=== PATIENT | male | born 1955 | race Caucasian/White ===

== ENCOUNTER 2017-01-06 17:37 | Emergency (ER) | payer MEDICARE ==
[2017-01-06 18:06] VITALS: BP 120/71
--- NOTE | 2017-01-06 18:47 | UC ---
Larry Smith Claudia, scribed for Cordell Mcgovern MD on 01/06/17 at 1818 . Neck Pain HPI - HPI Summary HPI Summary: 61 year old male presents to the [facility] with neck pain since Friday. Pt sister notes he woke up with pain on Friday and it has been consistent since. Pt notes pain left para-cervical pain aggravated with neck movement. PMHx of GERD and Autism is noted. - History of Current Complaint Chief Complaint: UCBackPain Stated Complaint: NECK PAIN Time Seen by Provider: 01/06/17 17:57 Hx Obtained From: Patient Onset/Duration: Sudden Onset, Lasting Days - since Friday Location: Discrete At: - left para-cervical Character: Sharp Aggravating Factors: Movement Alleviating Factors: Nothing - Allergies/Home Medications Allergies/Adverse Reactions: Allergies Allergy/AdvReac Type Severity Reaction Status Date / Time No Known Allergies Allergy Verified 01/06/17 18:00 Home Medications: Home Medications Famotidine TAB* [Pepcid 20 MG TAB*] 20 mg PO BEDTIME 01/06/17 [History Confirmed 01/06/17] Ibuprofen TAB* [Advil TAB*] 400 mg PO Q6H PRN 01/06/17 [History Confirmed ] PMH/Surg Hx/FS Hx/Imm Hx Previously Healthy: Yes Endocrine History Of: Denies: Diabetes GI/ History Of: Reports: Gastroesophageal Reflux - Surgical History Surgical History: Yes Surgery Procedure, Year, and Place: L shoulder - Family History Known Family History: Positive: Hypertension Negative: Diabetes - Social History Occupation: Disabled Lives: With Family Alcohol Use: Rare Substance Use Type: None Smoking Status (MU): Never Smoked Tobacco Review Of Systems Constitutional: Positive: Other - NO fever Skin: Positive: Negative Eyes: Positive: Negative ENT: Positive: Negative, Other - NO sore throat Respiratory: Positive: Other - NO cough Cardiovascular: Positive: Negative Gastrointestinal: Positive: Negative Genitourinary: Positive: Negative Musculoskeletal: Positive: Negative Neurological: Positive: Negative Psychological: Positive: Negative All Other Systems Reviewed And Are Negative: Yes Physical Exam Triage Information Reviewed: Yes Vital Signs: Initial Vital Signs Temp 98.5 F 01/06/17 18:02 Pulse 57 01/06/17 18:02 Resp 14 01/06/17 18:02 BP 120/71 01/06/17 18:02 Pulse Ox 99 01/06/17 18:02 - Additional Comments Fragile elderly male siting comfortably in wheelchair. Vital signs: Reviewed Gen.: Patient is a well developed and nourished male in no acute distress. Patient is sitting comfortably on the stretcher. Head: Normacephalic and atraumatic Eyes: PERRLA, EOMI x2. Ears: Right ear canal and TM WNL and Left ear canal and TM WNL Nose and mouth: WNL Neck: Supple, Positive bilateral submandibular and anterior cervical lymphadenopathy. No JVD. Right sternocleidomastoid tenderness but no cervical spine tenderness. Lungs: CTA B/L CVS: S1 & S2 present. No murmurs appreciated. ABDOMEN: Soft NT w/ positive BS. EXT: FROM x 4 NEURO: Alert but not oriented. Neck Pain Course/Dx - Course Course Of Treatment: 61 year old male presents to the [facility] with neck pain since Friday. Pt sister notes he woke up with pain on Friday and it has been consistent since. Pt notes pain left para-cervical pain aggravated with neck movement. PMHx of GERD and Autism is noted. Pt with history of austism and developmental delay unable to give a good history of what the pain is. PE reveals no CSpine tenderness and positive tenderness at palpation of the right trapezius and right sternocleidomastoid. The pt will be given RX of msucle relaxant and continue to take ibuprofen as needed. Pt sister was advised to go to ED if Sx worsen or if he develops any fever, sore throat or difficulty swallowing. - Differential Dx/Diagnosis Provider Diagnoses: neck pain Discharge - Discharge Plan Condition: Stable Disposition: HOME Prescriptions: Methocarbamol TAB* [Robaxin TAB*] 500 mg PO TID #9 tab Patient Education Materials: Neck Pain (ED) Referrals: No Primary Care Phys,NOPCP [Primary Care Provider] - Additional Instructions: Please follow-up with your Primary Care Physician. The documentation as recorded by the Larry ramos Claudia accurately reflects the service I personally performed and the decisions made by me, Cordell Mcgovern MD.
== END 2017-01-06 18:36 | disposition home or self-care (01) ==
LOC: UCEAST 17:37
DX: M54.2 Cervicalgia (principal)
CPT/HCPCS: 99202; G0463